=== PATIENT | male | born 1995 | race Caucasian/White ===

== ENCOUNTER 2020-02-23 06:44 | Emergency (ER) | payer MEDICAID ==
[~2020-02-23] VITALS: Ht 180.3 cm; Wt 68.5 kg
[2020-02-23] MEDS ORDERED: GABAPENTIN800 MG PO (06:58)
[2020-02-23] MEDS ORDERED: SUBOXONE 4 MG-1 EACH SL (06:59)
[2020-02-23] MEDS ORDERED: PYRIDIUM200 MG PO (08:07)
[2020-02-23] MEDS ORDERED: OXYBUTYNIN CHLOR5 MG PO (08:07)
== END 2020-02-23 09:49 | disposition home or self-care (01) ==
LOC: ED 06:44
DX: R10.2 Pelvic and perineal pain (principal); F31.9 Bipolar disorder, unspecified; F43.10 Post-traumatic stress disorder, unspecified; G47.00 Insomnia, unspecified; Z88.5 Allergy status to narcotic agent; Z79.899 Other long term (current) drug therapy
CPT/HCPCS: 81001; 99284